=== PATIENT | female | born 1985 | race Caucasian/White ===

== ENCOUNTER 2016-12-29 10:56 | Emergency (ER) | payer MEDICAID ==
[~2016-12-29] VITALS: Ht 165.1 cm; Wt 86.7 kg
[2016-12-29 11:01] VITALS: BP 143/91
== END 2016-12-29 11:57 | disposition home or self-care (01) ==
LOC: ED 10:56
DX: J01.90 Acute sinusitis, unspecified (principal); E11.9 Type 2 diabetes mellitus without complications; E66.9 Obesity, unspecified

== ENCOUNTER 2017-03-25 07:30 | Emergency (ER) | payer MEDICAID ==
[~2017-03-25] VITALS: Ht 165.1 cm; Wt 83.5 kg
[2017-03-25 07:40] VITALS: BP 136/93
== END 2017-03-25 08:48 | disposition home or self-care (01) ==
LOC: ED 07:30
DX: N39.0 Urinary tract infection, site not specified (principal)
CPT/HCPCS: J1885

== ENCOUNTER 2017-06-13 04:43 | Emergency (ER) | payer MEDICAID ==
[~2017-06-13] VITALS: Ht 165.1 cm; Wt 84.1 kg
[2017-06-13 04:53] VITALS: Ht 165.1 cm; Wt 84.1 kg
[2017-06-13 06:54] LABS: BASOPHIL % 0.6 % (0-2); PLATELET COUNT 239 x10^3mcL (130-400); RED CELL DISTRIBUTION WIDTH 13.4 % (11.5-14.5)
[2017-06-13 07:07] LABS: CALCIUM 8.8 mg/dL (8.5-10.1); CARBON DIOXIDE 28.4 mmol/L (21-32); CHLORIDE SERUM 103 mmol/L (98-107); CREATININE SERUM 0.5 mg/dL (0.6-1.0); GFR1 > 60 mL/min; GLUCOSE SERUM 83 mg/dL (74-106); POTASSIUM SERUM 3.8 mmol/L (3.5-5.1); SODIUM SERUM 140 mmol/L (136-145)
[2017-06-13 07:12] LABS: ALBUMIN 3.7 g/dL (3.4-5.0); ALKALINE PHOSPHATASE 41 U/L (46-116); ALT/SGPT 23 U/L (14-59); AMYLASE 28 U/L (25-115); AST/SGOT 16 U/L (15-37); BILIRUBIN TOTAL 0.23 mg/dL (0.20-1.00); LIPASE 147 IU/L (73-393); TOTAL PROTEIN, SERUM 7.5 g/dL (6.4-8.2)
[2017-06-13 08:23] VITALS: BP 135/82
== END 2017-06-13 08:24 | disposition home or self-care (01) ==
LOC: ED 04:43
PROVIDERS: Specialist
DX: R10.32 Left lower quadrant pain (principal)
CPT/HCPCS: 36415; 83880; J1885; J7030